=== PATIENT | male | born 1960 | race Caucasian/White ===

== ENCOUNTER → 2018-01-17 | Outpatient (CLI) | payer OTHER | LOC: BMCIMAGING 14:02 | PROVIDERS: ATTEND Physician Assistant | DX: R19.09 Other intra-abdominal and pelvic swelling, mass and lump (principal) ==

== ENCOUNTER → 2018-12-05 | Outpatient (CLI) | payer OTHER | LOC: FLAB 12:28 | PROVIDERS: ATTEND Family Medicine | DX: M25.561 Pain in right knee (principal); G89.29 Other chronic pain ==